=== PATIENT | female | born 1975 | race Caucasian/White ===

== ENCOUNTER 2017-08-06 01:06 | Emergency (ER) | payer OTHER ==
[~2017-08-06] VITALS: Ht 162.6 cm; Wt 86.9 kg
[~2017-08-06 01:06] MED LIST: ALBUTEROL INH; NEURONTIN50 MG/ML PO; PAXIL; SEROQUIL
[2017-08-06 02:03] LABS: HEMATOCRIT 37.3 % (36.0-46.0); MCV 88.2 FL (83-99); MEAN PLAT.VOLUME 10.8 uM^3 (9.5-12.4); PLATELET COUNT 140 K/uL (156-360); RBC DIS.WIDTH-CV 12.3 % (11.8-14.6); RBC DIS.WIDTH-SD 39.8 % (39-53); RED BLOOD COUNT 4.23 M/uL (3.80-5.20); WHITE BLOOD COUNT 10.6 K/uL (4.1-10.2)
[2017-08-06 02:26] LABS: CHLORIDE 95 mEq/L (99-109); SODIUM 136 mEq/L (136-147)
[2017-08-06 02:28] LABS: GLUCOSE 102 mg/dL (70-99)
[2017-08-06 02:30] LABS: ANION GAP 11 MEQ/L (2-14)
[2017-08-06 02:32] LABS: GFR ESTIMATE (CALCULATED) > 59 mL/min/
[2017-08-06 02:33] LABS: UREA NITROGEN (BUN) 11 mg/dL (9-23)
[2017-08-06 02:42] LABS: INFLUENZA A VIRAL ANTIGEN NEGATIVE; INFLUENZA B VIRAL ANTIGEN NEGATIVE
[2017-08-06 04:26] LABS: TOTAL BILIRUBIN 0.3 mg/dL (0.0-1.0)
[2017-08-06 04:27] LABS: ALKALINE PHOSPHATASE 103 IU/L (3-129)
[2017-08-06 04:30] LABS: CREATINE KINASE 28 IU/L (1-294); DIRECT BILIRUBIN 0.2 mg/dL (0.0-0.3)
[2017-08-06 04:36] LABS: QUANTITATIVE HCG < 4.0 MIU/ML
[2017-08-06 04:44] LABS: ADD MIUA? YES; BILIRUBIN NEGATIVE; BLOOD SMALL; COLOR AMBER ((YELLOW)); GLUCOSE (STRIP) NEGATIVE; KETONES NEGATIVE; LEUKOCYTES SMALL; NITRITE NEGATIVE; PROTEIN (STRIP) NEGATIVE; SPECIFIC GRAVITY 1.019 (1.000-1.030)
[2017-08-06 04:49] LABS: INTERNAL CONTROL VALID? YES; MONOSPOT (MONONUCLEOSIS SEROL) NEGATIVE
[2017-08-06 04:50] LABS: BACTERIA 1+ /HPF; EPITHELIAL CELLS 1+ /HPF; MUCUS 3+ /LPF; RED BLOOD CELLS 0-5 /HPF (0-5); UCUL ADDED? NO; WHITE BLOOD CELLS 0-5 /HPF (0-5)
[2017-08-06] MEDS ORDERED: ZOFRAN ODT4 MG PO (05:00)
[2017-08-06] MEDS ORDERED: LEVAQUIN500 MG PO (05:00)
[2017-08-06 05:31] VITALS: BP 140/85
[2017-08-06 16:26] LABS: LYME DISEASE SEROLOGY SCREEN NEGATIVE (NEGATIVE)
== END 2017-08-06 05:32 | disposition home or self-care (01) ==
LOC: EME 01:06
PROVIDERS: Physician Assistant
DX: N39.0 Urinary tract infection, site not specified (principal); M79.1 Myalgia; E86.0 Dehydration; J45.909 Unspecified asthma, uncomplicated; E78.5 Hyperlipidemia, unspecified; F17.200 Nicotine dependence, unspecified, uncomplicated
CPT/HCPCS: 71020; 80048; 80076; 81003; 82550; 84702; 85027; 86308; 86618; 87502; 99281; 99284; J1885; J2405; J7030

== ENCOUNTER 2018-01-06 11:30 | Emergency (ER) | payer OTHER ==
[~2018-01-06] VITALS: Ht 162.6 cm; Wt 84.7 kg
[~2018-01-06 11:30] MED LIST changes: +LEVAQUIN500 MG PO; +ZOFRAN ODT4 MG PO
[2018-01-06 14:53] VITALS: BP 137/87
== END 2018-01-06 14:54 | disposition home or self-care (01) ==
LOC: EME 11:30
DX: L02.413 Cutaneous abscess of right upper limb (principal); F17.200 Nicotine dependence, unspecified, uncomplicated; Z86.14 Personal history of Methicillin resistant Staphylococcus aureus infection; Z98.890 Other specified postprocedural states
CPT/HCPCS: 87040; 99281; 99283

== ENCOUNTER 2018-03-17 12:21 | Emergency (ER) | payer OTHER ==
[~2018-03-17] VITALS: Ht 165.1 cm; Wt 84.8 kg
[2018-03-17 15:38] LABS: HEMATOCRIT 35.2 % (36.0-46.0); HEMOGLOBIN 11.9 G/DL (11.9-15.5); MCH 30.3 PG (29.0-34.0); MCHC 33.8 G/DL (30.0-36.0); MCV 89.6 FL (83-99); PLATELET COUNT 215 K/uL (156-360); RBC DIS.WIDTH-CV 13.2 % (11.8-14.6); RBC DIS.WIDTH-SD 43.6 % (39-53); RED BLOOD COUNT 3.93 M/uL (3.80-5.20)
[2018-03-17 15:49] LABS: ALBUMIN 3.7 g/dL (3.2-4.8)
[2018-03-17 15:50] LABS: CHLORIDE 104 mEq/L (99-109); POTASSIUM 4.1 mEq/L (3.7-5.4); SODIUM 141 mEq/L (136-147)
[2018-03-17 15:52] LABS: GLUCOSE 108 mg/dL (70-99); TOTAL PROTEIN 6.2 g/dL (6.4-8.3)
[2018-03-17 15:54] LABS: TOTAL BILIRUBIN 0.1 mg/dL (0.0-1.0)
[2018-03-17 15:55] LABS: ALKALINE PHOSPHATASE 71 IU/L (3-129)
[2018-03-17 15:56] LABS: CREATININE 0.8 mg/dL (0.6-1.3); GFR ESTIMATE (CALCULATED) > 59 mL/min/
[2018-03-17 15:57] LABS: AST (GOT) 12 IU/L (2-34); UREA NITROGEN (BUN) 12 mg/dL (9-23)
[2018-03-17 15:58] LABS: ALT (GPT) 11 IU/L (3-49)
[2018-03-17 16:32] LABS: MONOSPOT (MONONUCLEOSIS SEROL) NEGATIVE
[2018-03-17] MEDS ORDERED: AUGMENTIN875 MG PO (17:29)
[2018-03-17 17:33] VITALS: BP 120/75
[2018-03-20 10:25] LABS: LYME DISEASE SEROLOGY SCREEN NEGATIVE (NEGATIVE)
== END 2018-03-17 17:34 | disposition home or self-care (01) ==
LOC: EME 12:21
PROVIDERS: Physician Assistant Medical
DX: R59.0 Localized enlarged lymph nodes (principal); J02.9 Acute pharyngitis, unspecified; J45.909 Unspecified asthma, uncomplicated; F17.200 Nicotine dependence, unspecified, uncomplicated; Z86.14 Personal history of Methicillin resistant Staphylococcus aureus infection
CPT/HCPCS: 80053; 85027; 86308; 86618; 87651 90; 99281; 99283